=== PATIENT | female | born 1945 | race Caucasian/White ===

== ENCOUNTER 2020-07-06 06:14 | Outpatient (REF) | payer MEDICARE, SELFPAY ==
[2020-07-06 11:04] LABS: MANUAL DIFF FLAG NO
[2020-07-06 11:31] LABS: Basophils Absolute Auto 0.1 X10*3/uL (0.0-0.2); Basophils Percent Auto 0.8 % (0-2); Eosinophils Absolute Auto 0.2 X10*3/uL (0.0-0.4); Eosinophils Percent Auto 2.1 % (0-4); Hematocrit 36.6 % (37-47); Hemoglobin 11.5 g/dl (12.0-16.0); Imm Gran Abs Auto 0.03 X10*3/uL (0.00-0.03); Imm Gran Pct Auto 0.4 % (0.0-0.4); Lymphocytes Absolute Auto 1.2 X10*3/uL (1.2-4.9); Lymphocytes Percent Auto 16.9 % (20-40); Mean Corpuscular HGB Conc 31.4 g/dl (31.0-35.0); Mean Corpuscular Volume 89.1 fL (80-98); Mean Platelet Volume 9.6 fL (9.4-12.3); Monocytes Absolute Auto 0.8 X10*3/uL (0.1-1.2); Monocytes Percent Auto 11.1 % (2-11); Neutrophils Percent Auto 68.7 % (45-73); Platelet Count 341 X10*3/uL (160-400); Red Blood Count 4.11 X10*6/uL (4.20-5.50); Red Cell Distribution Width 14.2 % (11.0-16.0); White Blood Count 7.3 X10*3/uL (4.8-10.8)
[2020-07-06 11:48] LABS: Alanine Aminotransferase 14 U/L (0-31); Albumin Level 4.3 g/dL (3.5-5.0); Alkaline Phosphatase 71 U/L (39-117); Anion Gap 15 (12-20); Aspartate Amino Transferase 16 U/L (5-31); Bilirubin Total 0.7 mg/dL (0.0-1.0); Blood Urea Nitrogen 17 mg/dL (9-16); Carbon Dioxide 26 mmol/L (22-29); Chloride 105 mmol/L (96-108); Estimated Glomerular Filt Rate > 60; Glucose Random 103 mg/dL (60-115); Iron 39 mcg/dL (30-160); Percent Iron Saturation 11 % (15-50); Sodium 142 mmol/L (135-145); Total Iron Binding Capacity 349 mcg/dL (228-428); Total Protein 7.2 g/dL (6.5-8.0); Unsaturated Iron Binding 310 ug/dL
[2020-07-06 12:10] LABS: Folate 10.9 ng/mL (> or = 4.0); Vitamin B12 669 pg/mL (200-900)
[2020-07-06 12:13] LABS: Ferritin 17 ng/mL (10-250)
[2020-07-09 12:53] LABS: Methylmalonic Acid 132 nmol/L (87-318)
== END 2020-07-06 06:15 | disposition home or self-care (01) ==
LOC: HO.HMGCLDS 06:14
PROVIDERS: PCP Internal Medicine; Visit Provider Internal Medicine
DX: M15.9 Polyosteoarthritis, unspecified (principal); K22.70 Barrett's esophagus without dysplasia; K21.9 Gastro-esophageal reflux disease without esophagitis; E03.9 Hypothyroidism, unspecified; D50.9 Iron deficiency anemia, unspecified; E53.8 Deficiency of other specified B group vitamins
CPT/HCPCS: 36415; 80053; 82607; 82728; 82746; 83540; 83921; 84443; 85025

== ENCOUNTER 2020-11-09 10:00 | Outpatient (REF) | payer MEDICARE, SELFPAY ==
[2020-11-09 11:21] LABS: MANUAL DIFF FLAG NO
[2020-11-09 11:26] LABS: Basophils Absolute Auto 0.1 X10*3/uL (0.0-0.2); Basophils Percent Auto 0.8 % (0-2); Eosinophils Absolute Auto 0.2 X10*3/uL (0.0-0.4); Eosinophils Percent Auto 2.6 % (0-4); Hematocrit 38.5 % (37-47); Hemoglobin 12.1 g/dl (12.0-16.0); Imm Gran Abs Auto 0.05 X10*3/uL (0.00-0.03); Imm Gran Pct Auto 0.6 % (0.0-0.4); Lymphocytes Absolute Auto 1.6 X10*3/uL (1.2-4.9); Lymphocytes Percent Auto 18.6 % (20-40); Mean Corpuscular HGB Conc 31.4 g/dl (31.0-35.0); Mean Corpuscular Hemoglobin 27.4 pg (27.0-33.0); Mean Corpuscular Volume 87.3 fL (80-98); Mean Platelet Volume 9.6 fL (9.4-12.3); Monocytes Percent Auto 11.7 % (2-11); Neutrophils Absolute Auto 5.8 X10*3/uL (2.0-8.3); Neutrophils Percent Auto 65.7 % (45-73); Platelet Count 365 X10*3/uL (160-400); Red Blood Count 4.41 X10*6/uL (4.20-5.50); Red Cell Distribution Width 14.8 % (11.0-16.0); White Blood Count 8.8 X10*3/uL (4.8-10.8)
[2020-11-09 12:13] LABS: Ferritin 45 ng/mL (10-250); TSH reflex Free T4 2.66 uIU/mL (0.32-4.0)
[2020-11-09 12:14] LABS: Iron 68 mcg/dL (30-160); Percent Iron Saturation 19 % (15-50); Total Iron Binding Capacity 356 mcg/dL (228-428); Unsaturated Iron Binding 288 ug/dL
== END 2020-11-09 10:01 | disposition home or self-care (01) ==
LOC: HO.HMGCLDS 10:00
PROVIDERS: PCP Internal Medicine; Visit Provider Internal Medicine
DX: E03.9 Hypothyroidism, unspecified (principal); D50.9 Iron deficiency anemia, unspecified
CPT/HCPCS: 36415; 82728; 83540; 84443; 85025

== ENCOUNTER 2021-11-15 08:25 | Outpatient (REF) | payer MEDICARE, SELFPAY ==
[2021-11-15 11:28] LABS: MANUAL DIFF FLAG NO
[2021-11-15 11:37] LABS: Basophils Absolute Auto 0.1 X10*3/uL (0.0-0.2); Basophils Percent Auto 1.1 % (0-2); Eosinophils Absolute Auto 0.3 X10*3/uL (0.0-0.4); Eosinophils Percent Auto 6.2 % (0-4); Hematocrit 29.9 % (37.0-47.0); Hemoglobin 9.2 g/dl (12.0-16.0); Imm Gran Abs Auto 0.02 X10*3/uL (0.00-0.03); Imm Gran Pct Auto 0.4 % (0.0-0.4); Lymphocytes Absolute Auto 1.1 X10*3/uL (1.2-4.9); Lymphocytes Percent Auto 19.3 % (20-40); Mean Corpuscular HGB Conc 30.8 g/dl (31.0-35.0); Mean Corpuscular Hemoglobin 27.5 pg (27.0-33.0); Mean Corpuscular Volume 89.5 fL (80.0-98.0); Mean Platelet Volume 9.8 fL (9.4-12.3); Monocytes Absolute Auto 0.8 X10*3/uL (0.1-1.2); Monocytes Percent Auto 14.9 % (2-11); Neutrophils Absolute Auto 3.2 x10*3/uL (2.0-8.3); Neutrophils Percent Auto 58.1 % (45-73); Platelet Count 405 X10*3/uL (160-400); Red Blood Count 3.34 X10*6/uL (4.20-5.50); Red Cell Distribution Width 15.8 % (11.0-16.0); White Blood Count 5.5 X10*3/uL (4.8-10.8)
[2021-11-15 11:48] LABS: Alanine Aminotransferase 9 U/L (0-31); Albumin Level 3.7 g/dL (3.5-5.0); Alkaline Phosphatase 68 U/L (39-117); Anion Gap 10 (12-20); Aspartate Amino Transferase 11 U/L (5-31); Bilirubin Total 1.3 mg/dL (0.0-1.0); Blood Urea Nitrogen 8 mg/dL (9-16); Calcium 9.3 mg/dL (8.4-10.2); Carbon Dioxide 29 mmol/L (22-29); Chloride 103 mmol/L (96-108); Estimated Glomerular Filt Rate > 60; Glucose Random 112 mg/dL (60-115); Potassium 3.8 mmol/L (3.3-5.1); Sodium 138 mmol/L (135-145); Total Protein 6.7 g/dL (6.5-8.0)
== END 2021-11-15 08:26 | disposition home or self-care (01) ==
LOC: HO.HMGCLDS 08:25
PROVIDERS: PCP Internal Medicine; Visit Provider Internal Medicine
DX: I10 Essential (primary) hypertension (principal); M15.9 Polyosteoarthritis, unspecified; Z96.651 Presence of right artificial knee joint
CPT/HCPCS: 36415; 80053; 85025

== ENCOUNTER 2021-12-22 06:37 | Outpatient (REF) | payer MEDICARE, SELFPAY | END 2021-12-22 06:38 | disposition home or self-care (01) | LOC: HO.HMGCLDS 06:37 | PROVIDERS: Visit Provider Internal Medicine | DX: Z13.89 Encounter for screening for other disorder (principal) ==

== ENCOUNTER 2025-02-26 06:41 | Outpatient (REF) | payer MEDICARE, SELFPAY ==
--- OUTSIDE RECORDS SUMMARY | 2025-02-26 06:47 | XMS_ITS | Clinical Summary ---
Author Organization [facility] Address [address] [place] [address] Phone Care Team Providers Care Customer Relations Representative Name Role Phone Eloy Agustin MD Primary Care Provider [phone] Allergies Active Allergy Reactions Criticality Noted Date Comments Aspirin High 12/02/2019 Other reaction(s): Other (See Comments) Peptic ulcer bleeds Azithromycin 08/23/2017 Other reaction(s): GI Upset Celecoxib Diarrhea 08/23/2017 Codeine Headache 08/23/2017 Latex Rash Low 07/13/2021 Nsaids (Non-Steroidal Anti-Inflammatory Drug) 06/28/2021 Omeprazole Diarrhea 08/23/2017 Oxaprozin 08/23/2017 Other reaction(s): Other (See Comments) Stomach pain Tetracycline 08/23/2017 Other reaction(s): Other (See Comments) Medications acetaminophen (TYLENOL) 500 mg tablet Every 6 Hours Active albuterol sulfate (ProAir RespiClick) 90 mcg/actuation aerosol powdr breath activated Inhale into the lungs. Active ascorbic acid, vitamin C, 500 mg capsule Take by mouth. Active gabapentin (NEURONTIN) 300 mg capsule Take 1 Capsule by mouth 2 times daily. Active levothyroxine (SYNTHROID, LEVOTHROID) 125 mcg tablet Take 1 Tablet by mouth daily. Active LORazepam (ATIVAN) 1 mg tablet Take 1 Tablet by mouth every 6 hours as needed. Active pantoprazole (PROTONIX) 40 mg EC tablet Take 1 Tablet by mouth daily. Active sertraline (ZOLOFT) 50 mg tablet Take 1 Tablet by mouth daily. Active sucralfate (CARAFATE) 1 gram tablet Take 1 Tablet by mouth 4 times daily. Active cyanocobalamin (VITAMIN B-12) 100 mcg tablet Take 0.5 Tablets by mouth daily. Active senna-docusate (PERICOLACE) 8.6-50 mg per tablet Take 1 tablet by mouth. 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 10/23 Hand arthritis 10/23/2022 Gait instability 10/23/2022 Anxiety 10/20/2022 Elevated bilirubin 10/20/2022 Scoliosis of thoracolumbar spine 10/20/2022 GIB (gastrointestinal bleeding) 10/20/2022 GERD (gastroesophageal reflux disease) S/P total left hip arthroplasty 10/20/2022 S/P hysterectomy 10/20/2022 History of total knee replacement 10/20/2022 Encounters Date Type Department Care Team Description 01/23/2025 7:00 AM EDT Ancillary Procedure [facility] [address] [facility] [address] [place] [address] Cardiac murmur from Last 3 Months Immunizations Name Administration Dates Next Due Moderna SARS-CoV-2 COVID-19, mRNA, LNP-S, preservative free 10/14/2020,09/16/2020 Surgical History Surgery Date Site/Laterality Comments TOTAL KNEE ARTHROPLASTY 05/16/2022 Left PROCEDURE: HISTORICAL TOTAL KNEE REPLACE; COMMENT: @ [facility] TOTAL KNEE ARTHROPLASTY 10/24/2021 Right PROCEDURE: HISTORICAL TOTAL KNEE REPLACE; COMMENT: @ [facility] HYSTERECTOMY PROCEDURE: HISTORICAL HYSTERECTOMY HIP ARTHROPLASTY Left PROCEDURE: HISTORICAL HIP REPLACEMENT; COMMENT: @ [place] Social History Tobacco Use Types Packs/Day Years Used Date Smoking Tobacco: Never Smokeless Tobacco: Never Alcohol Use Standard Drinks/Week Comments Never 0 (1 standard drink = 0.6 oz pur e alcohol) Comments Unknown Sex and Gender Information Value Date Recorded Sex Assigned at Not on file Legal Sex Female 9:34 PM EST Gender Identity Not on file Sexual Orientation Not on file Obstetrics History Last Filed Vital Signs Vital Sign Reading Time Taken Comments Blood Pressure 130/80 01/23/2025 7:44 AM EDT Pulse 64 10/05/2023 9:24 AM EDT Temperature - - Respiratory Rate - - Oxygen Saturation - - Inhaled Oxygen Concentration - - Weight 75.3 kg (166 lb) 01/23/2025 7:44 AM EDT Height 157.5 cm (5' 2 ) 01/23/2025 7:44 AM EDT Body Mass Index 30.36 01/23/2025 7:44 AM EDT Plan of Treatment Upcoming Encounters Date Type Department Care Team (Late st Contact Info) Description 05/19/2025 1:20 PM EST Office Visit Gastroenterology - [address] [place] [address] Lisandra Case MD [address] [place] [id number] Health Maintenance Due Date Last Done Comments Falls Risk Assessment 06/03/2022 Lung Cancer Screening (Low Dose CT) 06/03/2022 Osteoporosis Screening (Bone Density Screening) 06/03/2022 Social Influencers of Health Screening 06/03/2022 Medicare Annual Wellness Visit 03/09/2023 03/09/2022 Depression Screening 07/02/2024 COVID-19 Vaccine ( season) 2024 05/12/2024, 03/17/2023, 03/24/2022, Additional history exists Influenza Vaccine (#1) 2025 , 02/24/2023, 02/23/2022, Additional history exists DTaP,Tdap,and Td Vaccines (4 - Td or Tdap) 04/09/2028 04/09/2018, 10/07/2015, 04/01/2006 Cholesterol Screening (Lipid Panel) 10/13/2029 10/13/2024, 03/09/2022 Zoster Vaccines Completed 08/23/2019, 10/2018, 04/14/2014 Hepatitis C Screening Completed 11/21/2019 Pneumococcal Vaccine: 50+ Years Completed 02/05/2020, 08/30/2016, 12/22/2014, Additional history exists RSV Immunization Adult Patients Completed 01/17/2024 HIB Vaccines Aged Out No longer eligi ble based on patient's age to complete this topic HPV Vaccines Aged Out No longer eligi ble based on patient's age to complete this topic Hepatitis A Vaccines Aged Out No long er eligible based on patient's age to complete this topic Hepatitis B Vaccines Aged Out No long er eligible based on patient's age to complete this topic IPV Vaccines Aged Out No longer eligi ble based on patient's age to complete this topic MMR Vaccines Aged Out No longer eligi ble based on patient's age to complete this topic Meningococcal ACWY Vaccine Aged Out N o longer eligible based on patient's age to complete this topic Meningococcal B Vaccine Aged Out No l onger eligible based on patient's age to complete this topic RSV Immunization Patients Under 20 months Aged Out No longer eligible based on patient's age to complete this topic Varicella Vaccines Aged Out No longer eligible based on patient's age to complete this topic Procedures Procedure Name Priority Date/Time Associated Diagnosis Comments TRANSTHORACIC ECHOCARDIOGRAM (TTE) COMPLETE Routine 01/23/2025 7:44 AM EDT Cardiac murmur LIPID PANEL Routine 03/09/2022 from Last 3 Months or Most Recently Relevant to Health Maintenance Results * (ABNORMAL) TRANSTHORACIC ECHOCARDIOGRAM (TTE) COMPLETE (01/23/2025 7:44 AM EDT) Left Atrium Minor Chana 6.5 cm CV PACS Left Atrium Major Chana 5.9 cm CV PACS LA Area Sys (A2C) 21 cm2 CV PACS LA Area Sys (A4C) 25 cm2 CV PACS LA Volume (BP) 69 mL CV PACS RA Area 12.4 cm2 CV PACS RA 2D Volume 20 mL CV PACS AV Mean Gradient 13 mmHg CV PACS Ao VTI 44.7 cm CV PACS AV Peak Robert 2.5 m/s CV PACS AV Peak Gradient 25 mmHg CV PACS AV Area Continuity Equation 1.8 cm2 CV PACS AV Area Peak Velocity 1.8 cm2 CV PACS Aortic Sinus Valsalva 3.5 cm CV PACS Ascending Aorta 3.3 cm CV PACS IVC Proximal 1.6 cm CV PACS IVC Proximal 0.3 cm CV PACS IVSD 1.1(A) 0.6 - 0.9 cm CV PACS LVIDD 5.6(A) 3.8 - 5.2 cm CV PACS LVIDS 3.7(A) 2.2 - 3.5 cm CV PACS LVOT Diameter 2.3 cm CV PACS LVOT Mean Robert 0.7 m/s CV PACS LVOT Mean Grad 2 mmHg CV PACS LVOT Mean Grad 2 mmHg CV PACS LVOT Peak VTI 19.2 cm CV PACS LVOT Peak Robert 1.1 m/s CV PACS LVOT Peak Gradient 4 mmHg CV PACS LVPWD 1.1(A) 0.6 - 0.9 cm CV PACS MV E' Tissue Velocity Lateral 4 cm/s CV PACS MV E' Tissue Velocity Septal 3 cm/s CV PACS LVOT Area 4.2 cm2 CV PACS LVOT Stroke Volume 80 mL CV PACS MR VTI 159.0 cm CV PACS MR PISA Max Velocity 5.4 m/s CV PACS MR Peak Gradient 115 mmHg CV PACS E Wave Deceleration Time 268(A) 119 - 242 ms CV PACS MV Peak A Robert 1.37 m/s CV PACS MV Peak E Robert 0.95 m/s CV PACS PV Acceleration Time 113 ms CV PACS PV Acceleration Time 113 ms CV PACS RV Diastolic Basal Dimension 2.5 2.5 - 4.1 cm CV PACS RV S' 15 cm/s CV PACS TAPSE 22 mm CV PACS TR Peak Velocity 3.05 m/s CV PACS TR Peak Gradient 37 mmHg CV PACS E/E' Ratio Septal 32 CV PACS E/E' Ratio Averaged 28 CV PACS Relative Wall Thickness ratio 0.39 CV PACS LVOT:AV VTI Index 0.43 CV PACS FS 34 % CV PACS LV Mass 2D 249 g CV PACS LVOT flow 291 mL/s CV PACS AV Velocity Ratio 0.44 CV PACS E/A Ratio 0.7 CV PACS E/E' Ratio Lateral 24 CV PACS BSA 1.82 m2 CV PACS LA Volume Index (BP) 39 mL/m2 CV PACS LVIDD Index 3.16 cm/m2 CV PACS LVIDS Index 2.09 cm/m2 CV PACS LV Mass Index 2D 141(A) 44 - 88 g/m2 CV PACS LVOT Stroke Index 45 mL/m2 CV PACS RA 2D Volume Index 11(A) 15 - 27 mL/m2 CV PACS MORRIS Index (VTI) 1.01 cm2/m2 CV PACS MORRIS Index (Pk Robert) 1.02 cm2/m2 CV PACS Ascending Aorta Index 1.86 cm/m2 CV PACS Anatomical Region Laterality Modality Ultrasound Narrative 01/24/2025 7:39 PM EDT Left ventricle cavity is mildly dilated. Left ventricular systolic function is in the normal range with an ejection fraction of 60-65%. No regional LV wall motion abnormalities noted. Left ventricle mild concentric hypertrophy. There is Grade II (moderate) diastolic dysfunction. Elevated left atrial filling pressure Right ventricle cavity is normal. Right ventricular systolic function is normal. Aortic valve demonstrates mild stenosis. 21 mmHg peak 11 mmHg mean gradient Left atrial enlargement mild mitral insufficiency. Compared to previous study from 2019 there has been no significant change in the gradient across the aortic valve. The severity of the tricuspid insufficiency is unchanged. Diastolic dysfunction is unchanged Left Ventricle Left ventricle cavity is mildly dilated. There is mild concentric hypertrophy. Systolic function is normal with an ejection fraction of 60-65%. There are no regional LV wall motion abnormalities. There is Grade II (moderate) diastolic dysfunction. Right Ventricle Right ventricle cavity appears normal. Systolic function is normal. Left Atrium Left atrium cavity is mildly dilated. Right Atrium Right atrium cavity is small. IVC/SVC Inferior vena cava structure is normal. RA pressures is estimated to be 3 mmHg (IVC diameter <21 mm and decreases >50% during inspiration). Mitral Valve The leaflets are mildly thickened. 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 There is moderate annular calcification. There is mild regurgitation. There is no evidence of mitral valve stenosis. Tricuspid Valve Tricuspid valve structure is normal. There is mild regurgitation. There is no significant tricuspid valve stenosis. Aortic Valve Number of aortic valve cusps cannot be determined. The leaflets are mildly thickened and exhibit mildly reduced excursion. The leaflets are calcified. There is no regurgitation. There is mild stenosis. Pulmonic Valve The pulmonic valve was not well visualized. No significant pulmonic valve regurgitation. No significant pulmonary valve stenosis noted. Ascending Aorta The aorta appears normal in size. Pericardium Pericardium appears normal. There is no pericardial effusion. Study Details Overall the study quality was adequate. Eloy Agustin MD CV ECHO PROCEDURES Final Result * Lipid panel (03/09/2022) LDL/HDL Ratio 0 Comment:No Interpretation, A bstracted Triglycerides 0 mg/dL Comment:No Interpretation, A bstracted Cholesterol 0 mg/dL Comment:No Interpretation, A bstracted HDL 0 mg/dL Comment:No Interpretation, A bstracted LDL Cholesterol 0 mg/dL Comment:No Interpretation, A bstracted Blood Venous blood specimen / Unknown Historical Provider LAB BLOOD ORDERABLES Emely l Result from Last 3 Months or Most Recently Relevant to Health Maintenance Insurance MEDICARE [facility] Care Teams Customer Relations Representative Relationship Specialty Start Date End Date Eloy Agustin MD [address] [place] [address] PCP - General 10/23/22
--- OUTSIDE RECORDS SUMMARY | 2025-02-26 06:47 | XMS_ITS | Encounter Summary ---
Author Organization [facility] Address [address] [place] [address] Phone Care Team Providers Care Fire Observer Name Role Phone Eloy Agustin MD Unavailable [phone] Eloy Agustin MD Primary Care Provider [phone] InstrumTommy MD Unavailable Art Parra MD Unavailable [phone] 1 María Day PT Unavailable [phone] Lyly Saavedra OT Unavailable Encounter Details Date Type Department Care Team (Late st Contact Info) Description 02/08/2022 Procedure Pass [facility], Ct Scan - [address] [address] Social History Tobacco Use Types Packs/Day Years Used Date Smoking Tobacco: Former Cigarettes 1.5 32 0 08/30/1986 - 08/30/2018 Smokeless Tobacco: Never Alcohol Use Standard Drinks/Week Comments Not Currently 0 (1 standard drink = 0.6 oz pur e alcohol) none, quit 2019 Comments No Sex and Gender Information Value Date Recorded Sex Assigned at Female 06/11/2021 10:30 AM EST Legal Sex Female 10:05 PM EDT Gender Identity Not on file Sexual Orientation Not on file Occupation Industry 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 Start Date 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, 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 Not on file Not on file Not on file documented as of this encounter Plan of Treatment Upcoming Encounters Date Type Department Care Team (Late st Contact Info) Description 04/20/2025 9:30 AM EDT Office Visit [facility] Internal Medicine [address] [place] [address] Eloy Agustin MD [address] [place] [address] [email or web address] documented as of this encounter Visit Diagnoses Not on filedocumented in this encounter Additional Health Concerns Assessment Noted Time PHQ-2 Depression Total Score: 1 08/09/19 22 10:09 AM EST documented as of this encounter Care Teams Fire Observer Relationship Specialty Start Date End Date Eloy Agustin MD [address] [place] [address] PCP - General Internal Medicine 08/22/17 Eloy Agustin MD [address] [place], [place] Insurance Assigned Provider 10/06/23 InstrumTommy MD [address] [place] [id number] Orthopedic Surgery 11/20/19 Art Parra MD [address] [place] [address] Gastroenterology 11/25/19 María Day, PT [address] [place] [address] [email or web address] Physical Therapist Physical Therapy 10/24/21 Lyly Saavedra, OT [address] [place] [address] [email or web address] Transitions Measurement Advisor 05/17/22 2 documented as of this encounter Additional Source Comments The information contained in this document represents components of the legal health record. It is not the complete legal health record.[facility]
--- OUTSIDE RECORDS SUMMARY | 2025-02-26 06:47 | XMS_ITS | Encounter Summary ---
Author Organization [facility] Address [address] [place] [address] Phone Care Team Providers Care Forest Fire Specialist Supervisor Name Role Phone Eloy Agustin MD Unavailable [phone] Eloy Agustin MD Primary Care Provider [phone] InstrumTommy MD Unavailable Art Parra MD Unavailable [phone] 1 María Day PT Unavailable [phone] Reason for Visit * Reason Onset Date Comments Test Results 02/24/2025 Encounter Details Date Type Department Care Team (Late st Contact Info) Description 02/24/2025 Telephone Managed Methods [facility] Internal Medicine [address] [place] [address] Eloy Agustin MD [address] [place] [address] [email or web address] Test Results Social History Tobacco Use Types Packs/Day Years Used Date Smoking Tobacco: Former Cigarettes 1.5 34 0 08/30/1984 - 08/30/2018 Smokeless Tobacco: Never Comments:started smoking at age 39 Alcohol Use Standard Drinks/Week Comments Never 0 (1 standard drink = 0.6 oz pur e alcohol) none, quit 2019 Education Answer Date Recorded Are you interested in more education? Not on cocnha e 10/27/2022 Are you concerned about learning? Not on file 10/27/2022 No 10/27/2022 No 10/27/2022 Digital Access Answer Date Recorded No 11/27/2022 No 11/27/2022 Reliable internet access at home? Not on file 11/27/2022 Device with a working camera? Not on file Intimate Partner Violence Answer Date R ecorded Denied Basic Needs Not on file 11/27/2024 In the past 12 months have y ou been in a relationship with a person who hurts, threatens, or tries to control you? No 11/27/2024 Worried food would run out Not on file 11/27 In the past 12 months have y ou been in a relationship with a person who hurts, threatens, or tries to control you? 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 Compared to 2019 echo no significant change. * Ankita Holland - 02/24/2025 8:45 AM EDT Received call from patient requesting lab orders be faxed to [facility] in [place] on [address]. Faxed to [phone]. While on the call patient request a return call for results of Echo completed 01/23/2025 at [facility]. documented in this encounter Plan of Treatment Upcoming Encounters Date Type Department Care Team (Arley burton Contact Info) Description 04/20/2025 9:30 AM EDT Office Visit [facility] Internal Medicine [address] [place] [address] Eloy Agustin MD [address] [place] [address] documented as of this encounter Visit Diagnoses Not on filedocumented in this encounter Additional Health Concerns Assessment Noted Time PHQ-2 Depression Total Score: 0 11/28/19 8:53 AM EDT documented as of this encounter Care Teams Forest Fire Specialist Supervisor Relationship Specialty Start Date End Date Eloy Agustin MD [address] [place] [address] PCP - General Internal Medicine 08/22/17 Eloy Agustin MD [address] [place] [address] Insurance Assigned Provider 10/06/23 Instrum, Tommy Donald MD [address] [place] [address] Orthopedic Surgery 11/20/19 Art Parra MD [address] [place] [address] Gastroenterology 11/25/19 María Day, PT [address] [place] [address] [email or web address] Physical Therapist Physical Therapy 10/24/21 documented as of this encounter Additional Source Comments The information contained in this document represents components of the legal health record. It is not the complete legal health record.[facility]
--- OUTSIDE RECORDS SUMMARY | 2025-02-26 06:47 | XMS_ITS | Encounter Summary ---
Author Organization [facility] Address [address] [place] [address] Phone Care Team Providers Care Heating Unit Installer Name Role Phone Eloy Agustin MD Unavailable [phone] Eloy Agustin MD Primary Care Provider [phone] InstrumTommy MD Unavailable Art Parra MD Unavailable [phone] 1 María Day PT Unavailable Keivn Thomason OT Unavailable [phone] Lyly Saavedra OT Unavailable [phone] Encounter Details Date Type Department Care Team (Late st Contact Info) Description 10/24/2021 Procedure Pass [place] Admitting Dept - Virtual Department [address] [place] [phone] Social History Tobacco Use Types Packs/Day Years 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 Wish to be (Past 1 Month) No 10/24/2021 4:00 PM EDT [place], [place] 2. Non-Specific Active Suicidal Thoughts (Past 1 Month) No 10/24/2021 4:00 PM EDT Daya Fair RN 6. Suicidal Behavior (Lifetime) No 10/24/2021 4:00 PM EDT Daya Fair RN documented as of this encounter Plan of Treatment Upcoming Encounters Date Type Department Care Team (Late st Contact Info) Description 04/20/2025 9:30 AM EDT Office Visit [facility] Internal Medicine [address] [place] [address] Eloy Agustin MD [address] [place], [place] [email or web address] documented as of this encounter Visit Diagnoses Not on filedocumented in this encounter Additional Health Concerns Assessment Noted Time PHQ-2 Depression Total Score: 1 08/09/19 22 10:09 AM EST documented as of this encounter Care Teams Heating Unit Installer Relationship Specialty Start Date End Date Eloy Agustin MD [address] [place], [place] [email or web address] PCP - General Internal Medicine 08/22/17 Eloy Agustin MD [address] [place] [address] Insurance Assigned Provider 10/06/23 Tommy Carrion MD [address] [place] [address] [address] [place] [address] Orthopedic Surgery 11/20/19 Art Parra MD [address] [place] [address] Gastroenterology 11/25/19 María Day, PT [address] [place] [address] [email or web address] Physical Therapist Physical Therapy 10/24/21 Kevin Thomason, OT [address] [place] [address] [email or web address] Wharf [email or web address] Of Nursing Therapy 10/25/21 Lyly Saavedra, OT [address] [place] [address] [email or web address] Transitions Wharf Worker 05/17/22 2 documented as of this encounter Additional Source Comments The information contained in this document represents components of the legal health record. It is not the complete legal health record.[facility]
--- OUTSIDE RECORDS SUMMARY | 2025-02-26 06:47 | XMS_ITS | Encounter Summary ---
Author Organization [facility] Address [address] [place] [address] Phone Care Team Providers Care Yarn Carrier Name Role Phone Eloy Agustin MD Unavailable [phone] Eloy Agustin MD Primary Care Provider [phone] InstrumTommy MD Unavailable Art Parra MD Unavailable [phone] 1 María Day PT Unavailable [phone] Lyly Saavedra OT Unavailable [phone] Encounter Details Date Type Department Care Team (Late st Contact Info) Description 05/16/2022 Procedure Pass OR Admitting Dept - Virtual Department [address] [place] [id number] Social History Tobacco Use Types Packs/Day Years 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 Wish to be (Past 1 Month) No 022 6:00 PM Daily Ghosh RN 2. Non-Specific Active Suici lizy Thoughts (Past 1 Month) No 05/16/2022 6:00 PM Daily Ghosh RN 3. Active Suicidal Ideation with any Methods (Not Plan) Without Intent to Act (Past 1 Month) No 05/16/2022 6:00 PM Daily Ghosh, [place] 4. Active Suicidal Ideation with Some Intent to Act, Without Specific Plan (Past 1 Month) No 05/16/2022 6:00 PM Daily Ghosh RN 5. Active Suicidal Ideation with Specific Plan and Intent (Past 1 Month) No 05/16/2022 6:00 PM Daily Ghosh RN 6. Suicidal Behavior (Lifetime) No 6:00 PM Daily Ghosh RN documented as of this encounter Plan of Treatment Upcoming Encounters Date Type Department Care Team (Late st Contact Info) Description 04/20/2025 9:30 AM EDT Office Visit [facility] Internal Medicine [address] [place] [address] Eloy Agustin MD [address] [place] [address] [email or web address] documented as of this encounter Visit Diagnoses Not on filedocumented in this encounter Additional Health Concerns Assessment Noted Time PHQ-2 Depression Total Score: 0 03/09/20 22 10:02 AM EDT documented as of this encounter Care Teams Yarn Carrier Relationship Specialty Start Date End Date Eloy Agustin MD [address] [place] [address] PCP - General Internal Medicine 08/22/17 Eloy Agustin MD [address] [place] [address] Insurance Assigned Provider 10/06/23 InstrTommy santiago MD [address] [place] [id number] Orthopedic Surgery 11/20/19 Art Parra MD [address] [place] [address] Gastroenterology 11/25/19 María Day, PT [address] [place] [address] Physical Therapist Physical Therapy 10/24/21 Lyly Saavedra, OT [address] [place] [address] [email or web address] Transitions [employer] Supply Load Builder 05/17/22 2 documented as of this encounter Additional Source Comments The information contained in this document represents components of the legal health record. It is not the complete legal health record.[facility]
--- OUTSIDE RECORDS SUMMARY | 2025-02-26 06:47 | XMS_ITS | Encounter Summary ---
Author Organization [facility] Address [address] [place] [address] Phone Care Team Providers Care Associate Financial Representative Name Role Phone Eloy Agustin MD Unavailable [phone] Eloy Agustin MD Primary Care Provider [phone] InstrumTommy MD Unavailable [phone] Art Parra MD Unavailable [phone] 1 María Day PT Unavailable [phone] Encounter Details Date Type Department Care Team (Late st Contact Info) Description 01/26/2025 Orders Only [facility] Internal Medicine [address] [place] [address] Provider, MD Adelaida [address] [place] [address] Social History Tobacco Use Types Packs/Day Years Used Date Smoking Tobacco: Former Cigarettes 1.5 34 0 08/30/1984 - 08/30/2018 Smokeless Tobacco: Never Comments:started smoking at age 39 Alcohol Use Standard Drinks/Week Comments Never 0 (1 standard drink = 0.6 oz pur e alcohol) none, quit 2019 Education Answer Date Recorded Are you interested in more education? Not on concha e 10/27/2022 Are you concerned about learning? 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 Not on file Not on file Not on file documented as of this encounter Plan of Treatment Upcoming Encounters Date Type Department Care Team (Late st Contact Info) Description 04/20/2025 9:30 AM EDT Office Visit [facility] Internal Medicine [address] [place] [address] Eloy Agustin MD [address] [place] [address] [email or web address] documented as of this encounter Procedures Procedure Name Priority Date/Time Associated Diagnosis Comments OUTSIDE ECHO Routine 01/23/2025 2:09 PM EDT documented in this encounter Results * Outside Echo Report Only (01/23/2025 2:09 PM EDT) us Historical Provider MD CASON ECHO ORDERABLES Final Result documented in this encounter Visit Diagnoses Not on filedocumented in this encounter Additional Health Concerns Assessment Noted Time PHQ-2 Depression Total Score: 0 11/28/19 8:53 AM EDT documented as of this encounter Care Teams Associate Financial Representative Relationship Specialty Start Date End Date Eloy Agustin MD [address] [place] [address] PCP - General Internal Medicine 08/22/17 Eloy Agustin MD [address] [place] [address] Insurance Assigned Provider 10/06/23 Instrum, Tommy Donald MD [address] [place] [address] Orthopedic Surgery 11/20/19 Art Parra MD [address] [place] [phone] Gastroenterology 11/25/19 María Day, PT [address] [place] [address] [email or web address] Physical Therapist Physical Therapy 10/24/21 documented as of this encounter Additional Source Comments The information contained in this document represents components of the legal health record. It is not the complete legal health record.[facility]
--- OUTSIDE RECORDS SUMMARY | 2025-02-26 06:47 | XMS_ITS | Clinical Summary ---
Author Organization [facility] Address [address] [place] [address] Phone Care Team Providers Care Figure Skater Name Role Phone Eloy Agustin MD Unavailable [phone] Eloy Agustin MD Primary Care Provider Instrum, Tommy Donald MD Unavailable [phone] Art Parra MD Unavailable [phone] María Day PT Unavailable [phone] Allergies Active Allergy Reactions Criticality Noted Date Comments Aspirin Other (See Comments) High 12/02/2019 Peptic ulcer bleeds Azithromycin GI Upset 08/23/2017 Celecoxib Diarrhea 08/23/2017 Codeine Headaches 08/23/2017 Latex Rash Low 07/13/2021 Nsaids (Non-Steroidal Anti-Inflammatory Drug) 06/28/2021 Omeprazole Diarrhea 08/23/2017 Oxaprozin Other (See Comments) 08/23/2017 Stomach pain Tetracycline Other (See Comments) 08/23/2017 Medications ascorbic acid, vitamin C, (VITAMIN C) 500 MG tablet Take 1 tablet (500 mg total) by mouth 2 (two) times a day. 10/27/19 Active Additional Information Patient taking differently:500 mg Oral2 times weekly, Reported on 11/27/2024 cyanocobalamin, vitamin B-12, 100 MCG tabletIndications: B12 deficiency Take 1 tablet (100 mcg total) by mouth daily. 100 tablet 1 03/10/20 22 Active Additional Information Patient taking differently:100 mcg OralEvery 30 days, Reported on 11/27/2024 lidocaine HCL 4 % PtMd Apply 1 patch topically daily as needed. Active gabapentin (NEURONTIN) 300 MG capsuleIndications :S/P total knee replacement using cement, right TAKE 1 CAPSULE BY MOUTH THREE TIMES A DAY 90 capsule 11 05/09/20 24 Active albuterol 90 mcg/actuation inhalerIndications :Bronchospasm INHALE 2 PUFFS BY MOUTH EVERY 6 HOURS NEEDED FOR WHEEZING 8 g 5 05/16/20 24 Active sertraline (ZOLOFT) 50 MG tabletIndications: Anxiety disorder TAKE 1 TABLET BY MOUTH NIGHTLY AT BEDTIME 90 tablet 3 08/19/19 25 Active acetaminophen (TYLENOL) 650 MG CR tablet Take 1,300 mg by mouth 2 (two) times a day. And 1 tablet in the afternoon Active pantoprazole (PROTONIX) 20 MG tabletIndications: Gastroesophageal reflux disease, unspecified whether esophagitis present Take 1 tablet (20 mg total) by mouth daily. 90 tablet 1 10/14/19 25 Active Additional Information Patient taking differently:20 mg OralAs needed, Reported on 11/27/2024 SYNTHROID 125 mcg tabletIndications: Acquired hypothyroidism Take 1 tablet (125 mcg total) by mouth as directed. 6 days/week 78 tablet 10/31/19 25 Active LORazepam (ATIVAN) 1 MG tabletIndications: Anxiety Take 1 tablet (1 mg total) by mouth every 8 (eight) hours as needed for anxiety. 90 tablet 4 11/28/19 25 Active folic acid (FOLVITE) 1 MG tabletIndications: Folic acid deficiency Take 1 tablet (1 mg total) by mouth daily. 100 tablet 1 12/01/19 25 Active Active Problems Problem Noted Date Diagnosed Date Chronic obstructive pulmonar y disease, unspecified COPD type 06/01/2023 S/P total knee replacement using cement, left Encounter for preoperative s creening laboratory testing for COVID-19 virus 10/25/2021 S/P total knee replacement using cement, right 0 10/24/2021 Primary osteoarthritis of left knee 07/13/2021 Primary osteoarthritis of right hip 07/13/2021 Pain due to left hip joint prosthesis 07/13/2021 Gait instability 07/13/2021 Other idiopathic scoliosis, thoracolumbar region 07/13/2021 Pseudogout 06/13/2021 Assessment & Plan (06/13/2021 4:47 PM EST): - left knee aspirate pseudogout - received colchicine, ortho recommends treat with prednisone - pain control with acetaminophen, tramadol, ice - also left sided potts's cyst - right knee pain is worse today, xray no fracture, may be pseudogout as well - septic arthritis seems unlikely, cont serial exam and will review with ortho - trend wbc, watch for fever (stop scheduled acetaminophen) Anemia 11/29/2018 Serum total bilirubin elevated 11/29/2018 Gastric ulcer 07/02/2018 Overview (06/12/2021): multiple transfusion after treatment with aspirin Acquired hypothyroidism 12/13/2017 Anxiety disorder 12/13/2017 Assessment & Plan (06/13/2021 4:45 PM EST): - cont current lorazepam Colon polyp 12/13/2017 Fatigue 12/13/2017 Hyperlipidemia 12/13/2017 Generalized osteoarthritis 12/13/2017 Seasonal allergic rhinitis due to pollen 018 Smoker 12/13/2017 History of gastric ulcer 12/13/2017 Assessment & Plan (06/13/2021 4:47 PM EST): Avoiding nsaids and aspirin - cont ppi and sucralfate 1 g Primary osteoarthritis of right knee Disorder of thyroid Resolved Problems Problem Noted Date Diagnosed Date Resolved Date Fever, unknown origin 06/12/20212020 Assessment & Plan (06/13/2021 4:50 PM EST): - could be due to pseudogout. - follow up blood and joint cultures - UA arias snot suggest UTI, covid negative x2, CXR does not show infiltrate - cont watchful waiting off antibiotics - left leg u/s no DVT, would check right as well Encounters Date Type Department Care Team Description 02/24/2025 Telephone [facility] [place] [facility] [address] [place] [address] Eloy Agustin MD Test Results 01/26/[address] [facility] [address] [place] [address] Adelaida Broussard MD 12/10/[address] [facility] [address] [place] [address] Eloy Agustin MD 12/01/[address] [facility] [address] [place] [address] Eloy Agustin MD Pre Op 11/30/[address] [facility] [address] [place] [address] Eloy Agustin MD Results 11/27/2024 11:15 AM EDT - 11/27/2024 11:59 PM EDT Hospital Encounter [facility] [address] [place] [address] Eloy Agustin MD Discharge Disposition: Home or Self Care 11/27/2024 9:30 AM EDT Office Visit [facility] [address] [place] [address] Eloy Agustin MD Routine general medical examination at a health care facility (Primary Dx); Acquired hypothyroidism; Vitamin D deficiency, unspecified; Gastroesophageal reflux disease, unspecified whether esophagitis present; Cardiac murmur, unspecified; Impaired fasting glucose; Primary osteoarthritis involving multiple joints; Anxiety disorder, unspecified type; Chronic obstructive pulmonary disease, unspecified COPD type; Anemia, unspecified type; Other idiopathic scoliosis, thoracolumbar region; Anxiety from Last 3 Months Immunizations Immunization Administration Dates Next Due COVID-19 (Pre-04/23) Moderna Vaccine, mRNA, PF 10/14/2020,09/16/2020 INFLUENZA, SPLIT VIRUS, TRIV ALENT W/ PRESERVATIVE IM 08/30/2018 Influenza High-Dose Quadriva lent Preservative Free IM 02/23/2022,03/14/2021,02/19/2020 Influenza High-Dose Trivalen t Preservative Free IM 02/13/2024,02/19/2020,04/03/2018,03/10,02/18/2016,03/28/2015,04/24/2013 Influenza Quadrivalent Adjuv anted Preservative Free IM 02/24/2023 Influenza, Unspecified Formulation 02/19/2019 PPD Test 11/01/2018 Pneumococcal conjugate PCV13 02/05/2020,12/23/19 15 Pneumococcal polysaccharide PPSV23 08/30/2016, RSV Vaccine (bivalent) 01/17/2024 Td (adult) 5 Lf Tetanus Toxo id, PF, Adsorbed 04/09/2018,04/01/2006 Tdap 10/07/2015 Zoster live 04/14/2014 Zoster recombinant 08/23/2019,05/06/2019 Family History Medical History Relation Comments Prostate cancer Father Colon cancer Mother Alcohol abuse Sister Colon cancer Son 2 Relation Status Comments Brother Daughter Alive Father Mother Sister Alive Son 1 Alive Son 2 Alive Social History Tobacco Use Types Packs/Day Years Used Date Smoking Tobacco: Former Cigarettes 1.5 34 0 08/30/1984 - 08/30/2018 Smokeless Tobacco: Never Tobacco Cessation:Counseling Given: Not Answered Comments:started smoking at age 39 Alcohol Use Standard Drinks/Week Comments Never 0 (1 standard drink = 0.6 oz pur e alcohol) none, quit 2018 Education Answer Date Recorded Are you interested 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, 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 Not on file Not on file Not on file Last Filed Vital Signs Vital Sign Reading Time Taken Comments Blood Pressure 136/74 11/27/2024 11:04 AM EDT Pulse 72 11/27/2024 9:20 AM EDT Temperature 37.3 C (99.2 F) 11/27/2024 9:20 AM EDT Respiratory Rate 16 11/27/2024 9:20 AM EDT Oxygen Saturation 100% 11/27/2024 9:20 AM EDT Inhaled Oxygen Concentration - - Weight 74.4 kg (164 lb) 11/27/2024 9:20 AM EDT Height 156.7 cm (5' 1.69 ) 11/27/2024 9:20 AM ED T Body Mass Index 30.3 11/27/2024 9:20 AM EDT Plan of Treatment Upcoming Encounters Date Type Department Care Team (Late st Contact Info) Description 04/20/2025 9:30 AM EDT Office Visit [facility] [place] [facility] [address] [place] [address] Eloy Agustin MD [address] [place] [address] [email or web address] Health Maintenance Due Date Last Done Comments HEPATITIS A VACCINES (1 of 2 - Risk 2-dose series) 12/17/1966 LUNG CANCER SCREENING (LDCT Only) 12/17/1997 COVID-19 VACCINE ( season) 2024 05/12/2024, 03/17/2023, 03/24/2022, Additional history exists INFLUENZA VACCINE (#1) 2025 , 02/24/2023, 02/24/2023, Additional history exists DEPRESSION SCREENING 11/27/2025 11/27/2024 TSH LEVEL 11/27/2025 11/27/2024, 09/30, 06/01/2023, Additional history exists Adult Td,Tdap Booster 04/09/2028 04/09/2018 , 10/07/2015, 04/01/2006 LIPID PANEL 10/13/2029 10/13/2024, 04/01, 04/10/2023, Additional history exists OSTEOPOROSIS SCREENING INITIAL (ONE-TIME) Completed 12/07/2011 ZOSTER VACCINES Completed 08/23/2019, 10/2018, 04/14/2014 HEPATITIS C SCREENING Completed 11/21/2019, 020 PNEUMOCOCCAL VACCINES (50+ years) Completed 02/05/2020, 08/30/2016, 12/22/2014, Additional history exists RSV VACCINE Completed 01/17/2024 HIB VACCINES Aged Out No longer eligi ble based on patient's age to complete this topic MENINGOCOCCAL VACCINES (ACWY) Aged Out No longer eligible based on patient's age to complete this topic MENINGOCOCCAL VACCINES (B) Aged Out N o longer eligible based on patient's age to complete this topic Medical Devices Implanted Type Area Collect On Delivery Clerk Device Identifier Shelf Expiration Date Model / Serial / Lot Prosthetic Joint Prosthetic Joint Left: Hip Knee Implant Sz 7 Component Femoral Persona Ps Sterling Cemented Std Rt - [id number] Implanted:Qty: 1 on 10/24/2021 by Chito Rooney MD at [facility] Right: Knee SUSAN / DIV OF [employer] 10/24/2030 [id number] / / [id number] Knee Implant 5deg Component Tibial Persona Titanium Stemmed Cemented Rt Size E - [id number] Implanted:Qty: 1 on 10/24/2021 by Chito Rooney MD at [facility] Right: Knee SUSAN / DIV OF [employer] 05/23/2031 [id number] / / [id number] Knee Cemented 35x9.0mm Patella All Poly Persona Vivacit E Highly Crossed Linked 06 Nc - [id number] Implanted:Qty: 1 on 10/24/2021 by Chito Rooney MD at [facility] Right: Knee SUSAN / DIV OF [employer] 07/10/2026 [id number] / / [id number] Bone Cement Antibiotic Refobacin - [id number] Implanted:Qty: 2 on 10/24/2021 by Chito Rooney MD at [facility] Right: Knee SUSAN / DIV OF [employer] 11/30/2023 [id number] / / [id number] Persona Vivacit-E Highly Crosslinked Polyethylene Articular Surface Fixed Bearing Ps Right 11mm Implanted:Qty: 1 on 10/24/2021 by Chito Rooney MD at [facility] Right: Knee SUSAN 09/17/2025 [id number] / / [id number] Description:Persona vivacit- e highly crosslinked polyethylene articular surface fixed bearing PS right 11mm Knee Implant 5deg Component Tibial Persona Titanium Stemmed Cemented Lt Size D - [id number] Implanted:Qty: 1 on 05/16/2022 by Chito Rooney MD at [facility] Left: Knee SUSAN / DIV OF [employer] 01/03/2032 [id number] / / [id number] Knee Cemented 35x9.0mm Patella All Poly Persona Vivacit E Highly Crossed Linked 06 Nc - [id number] Implanted:Qty: 1 on 05/16/2022 by Chito Rooney MD at [facility] Left: Knee [facility]USAN / [facility] 04/03/2027 [id number] / / [id number] Knee Implant 12mm Component Articular Surface Persona Vivacite E Contrained Posterior Stabilized Lt Fem 6 9 Tib Cd - [id number] Implanted:Qty: 1 on 05/16/2022 by Chito Rooney MD at [facility] Left: Knee SUSAN / DIV OF [employer] 07/14/2025 [id number] / / [id number] Description:Persona vivacit- e highly crosslinked polyethylene articular surface fixed bearing CPS left 12mm height Bone Cement Antibiotic Refobacin - [id number] Implanted:Qty: 1 on 05/16/2022 by Chito Rooney MD at [facility] Left: Knee SUSAN / DIV OF [employer] 05/31/2024 [id number] / / [id number] Bone Cement Antibiotic Refobacin - [id number] Implanted:Qty: 1 on 05/16/2022 by Chito Rooney MD at [facility] Left: Knee SUSAN / DIV OF [employer] 05/01/2024 [id number] / / [id number] Knee Implant Sz 6 Component Femoral Persona Ps Sterling Cemented Std Lt - [id number] Implanted:Qty: 1 on 05/16/2022 by Chito Rooney MD at [facility] Left: Knee SUSAN / DIV OF [employer] 09/27/2030 [id number] / / [id number] Procedures Procedure Name Priority Date/Time Associated Diagnosis Comments OUTSIDE ECHO Routine 01/23/2025 2:09 PM EDT VITAMIN B12 Routine 11/27/2024 11:15 AM EDT Anemia, unspecified type FERRITIN Routine 11/27/2024 11:15 AM EDT Anemia, unspecified type IRON AND IRON BINDING CAPACITY Routine 11/27/2024 11:15 AM EDT Anemia, unspecified type FOLATE Routine 11/27/2024 11:15 AM EDT Anemia, unspecified type CBC AND DIFFERENTIAL Routine 11/27/2024 11:15 AM EDT Anemia, unspecified type TSH WITH REFLEX Routine 11/27/2024 11:15 AM EDT Acquired hypothyroidism 25-OH VITAMIN D Routine 11/27/2024 11:15 AM EDT Vitamin D deficiency, unspecified LIPID PANEL Routine 10/13/2024 11:30 AM EDT Impaired fasting glucose Pure hypercholesterolemia HEPATITIS C ANTIBODY, QUALITATIVE Routine 11/21/2019 9:11 AM EDT Need for hepatitis C screening test OUTSIDE BONE DENSITY SCREENING Routine 12/07/2011 from Last 3 Months or Most Recently Relevant to Health Maintenance Results * Outside Echo Report Only (01/23/2025 2:09 PM EDT) us Historical Provider CV ECHO ORDERABLES Final Result * TSH with reflex (11/27/2024 11:15 AM EDT) TSH 1.35 0.27 - 4.20 uIU/mL [facility] Blood 11/27/2024 11:1 5 AM EDT 11/27/2024 11:20 AM EDT us Eloy Agustin MD LAB BLOOD ORDERABLES Final Re sult Performing Organization Address [facility]/ZIP Co de Phone Number [address] [address] * Iron and iron binding capacity (11/27/2024 11:15 AM EDT) IRON 62 30 - 160 ug/dL [facility] IRON BINDING CAPACITY 341 228 - 428 ug/dL [facility] TRANSFERRIN SATURAT. 18 15 - 50 % [facility] Blood 11/27/2024 11:1 5 AM EDT 11/27/2024 11:20 AM EDT Eloy Agustin MD LAB BLOOD ORDERABLES Final Re sult Performing Organization Address [facility]/ZIP Co de Phone Number [address] [address] * 25-OH vitamin D (11/27/2024 11:15 AM EDT) 25 OH VIT D (TOTAL) 34 30 - 60 ng/mL [facility] Blood 11/27/2024 11:1 5 AM EDT 11/27/2024 11:20 AM EDT us Eloy Agustin MD LAB BLOOD ORDERABLES Final Re sult Performing Organization Address [facility]/ZIP Co de Phone Number [address] [address] * (ABNORMAL) CBC and differential (11/27/2024 11:15 AM EDT) WBC 7.54 4.00 - 11.00 K/uL [facility] RBC 4.46 4.00 - 5.20 M/uL [facility] HGB 12.1 12.0 - 16.0 g/dL [facility] HCT 38.3 36.0 - 46.0 % [facility] PLT 326 150 - 450 K/uL [facility] MCV 85.9 80.0 - 100.0 fL [facility] MCH 27.1 27.0 - 31.0 pg [facility] MCHC 31.6(L) 32.0 - 36.0 g/dL [facility] RDW 13.8 11.5 - 14.5 % [facility] MPV 9.8 8.4 - 12.0 fL [facility] NRBC 0.00 0.00 /100 WBCs [facility] ABSOLUTE NRBC 0.00 0.00 K/uL [facility] DIFF METHOD Auto [facility] NEUTS 64.5 48.0 - 76.0 % [facility] LYMPHS 21.2 18.0 - 41.0 % [facility] MONOS 9.9 4.0 - 11.0 % [facility] EOS 3.2 0.0 - 5.0 % [facility] BASOS 1.1 0.0 - 1.5 % [facility] Granulocytes, immature (%) 0.1 0.0 - 0.9 % [facility] ABSOLUTE NEUTS 4.86 1.92 - 7.60 K/uL [facility] ABSOLUTE LYMPHS 1.60 0.72 - 4.10 K/uL [facility] ABSOLUTE MONOS 0.75 0.16 - 1.10 K/uL [facility] ABSOLUTE EOS 0.24 0.00 - 0.50 K/uL [facility] ABSOLUTE BASOS 0.08 0.00 - 0.15 K/uL [facility] Granulocytes, immature 0.01 0.00 - 0.09 K/uL [facility] Blood 11/27/2024 11:1 5 AM EDT 11/27/2024 11:20 AM EDT us Eloy Agustin MD LAB BLOOD ORDERABLES Final Re sult Performing Organization Address [facility]/ZIP Co de Phone Number [address] [address] * (ABNORMAL) Folate (11/27/2024 11:15 AM EDT) FOLIC ACID 3.3(L) 4.2 - 19.9 ng/mL [facility] Blood 11/27/2024 11:1 5 AM EDT 11/27/2024 11:20 AM EDT us Eloy Agustin MD LAB BLOOD ORDERABLES Final Re sult Performing Organization Address [facility] Co de Phone Number [address] [address] * Ferritin (11/27/2024 11:15 AM EDT) FERRITIN 33 13 - 150 ug/L [facility] Blood 11/27/2024 11:1 5 AM EDT 11/27/2024 11:20 AM EDT us Eloy Agustin MD LAB BLOOD ORDERABLES Final Re sult Performing Organization Address [facility] Co de Phone Number [address] [address] * Vitamin B12 (11/27/2024 11:15 AM EDT) VITAMIN B12 405 232 - 1,245 pg/mL [facility] Blood 11/27/2024 11:1 5 AM EDT 11/27/2024 11:20 AM EDT us Eloy Agustin MD LAB BLOOD ORDERABLES Final Re sult Performing Organization Address [facility]/ZIP Co de Phone Number [address] [address] * (ABNORMAL) Lipid panel (10/13/2024 11:30 AM EDT) HDL 40 mg/dL [facility] Comment: Interpretation <40 mg/dL: Low HDL cholesterol (major risk factor for CHD) Greater than or equal to 60 mg/dL: High HDL cholesterol ( negative risk factor for CHD) HDL - cholesterol is affected by a number of factors, e.g. smoking, excerise, hormones, sex and age. CHOLESTEROL 186 0 - 240 mg/dL [facility] TRIGLYCERIDES 137 30 - 160 mg/dL [facility] LDL 119 50 - 129 mg/dL [facility] Comment: LDL levels in terms of risk for coronary heart disease: <100 mg/dL: Optimal 100-129 mg/dL: Near or above optimal 130-159 mg/dL: Borderline high 160-189 mg/dL: High >190 mg/dL: Very High CARDIAC RISK RATIO 4.7(H) 3.3 - 4.4 C [facility] Blood 10/13/2024 11:3 0 AM EDT 10/13/2024 11:35 AM EDT us Eloy Agustin MD LAB BLOOD ORDERABLES Final Re sult Performing Organization Address City/[facility] Co de Phone Number [address] [address] * Hepatitis C antibody, qualitative (11/21/2019 9:11 AM EDT) HCV NON-REACTIV E NON-REACTI VE [facility] Blood 11/21/2019 9:11 AM EDT 11/21/2019 1:07 PM EDT us Eloy Agustin MD LAB BLOOD ORDERABLES Final Re sult Performing Organization Address [facility]/ZIP Co de Phone Number [address] [address] * OUTSIDE BONE DENSITY SCREENING (12/07/2011) BONE DENSITY SCREENING - EXTERNAL normal us Historical Aarti HICKS HEALTH MAINTENANCE Final Result from Last 3 Months or Most Recently Relevant to Health Maintenance Insurance MEDICARE PART A & B [employer] MEDEX SUPPLEMENT Member Subscriber Plan / Payer (Ef fective 2010-Present) Name:Mattie Turk Relation to Subscriber:Self Name:Mattie Turk Payer ID:[id number] (NAIC) Type:Indemnity Address: [facility] [id number] NET FULL MEDICARE PART A & B [employer] MEDEX SUPPLEMENT Member Subscriber Plan / Payer ( fective 2010-Present) Name:Mattie Turk Relation to Subscriber:Self Name:Mattie Turk Payer ID:[id number] (NAIC) Type:IndemniEchograph Address: [facility] [id number] FULL MEDICARE PART A & B [employer] MEDEX SUPPLEMENT HEALTH SAFETY [place]IC[place] [id number] [facility] MEDEX SUPPLEMENT HEALTH SAFETY NET FULL Member Subscriber Plan / Payer (Ef fective 2021-Present) Name:Mattie Turk Relation to Subscriber:Self Name:Mattie Turk Payer ID:Not on file Group ID:Not on file Type:Medicaid Address: [place] [id number] MEDICARE PART A & B [employer] MEDEX SUPPLEMENT [facility] NET FULL MEDICARE PART A & B [employer] MEDEX SUPPLEMENT [employer] SAFETY NET FULL MEDICARE PART A & B [employer] MEDEX SUPPLEMENT [employer] SAFETY NET FULL MEDICARE PART A & B Member Subscriber Plan / Payer (Ef fective 2010-Present) Name:Mattie Turk Member ID:[id number] Relation to Subscriber:Self Name:Mattie Turk Subscriber ID:[id number] Payer ID:[id number] Group ID:Not on file Type:Medicare Address: [facility] [employer] [facility] [address] [place] [phone] [facility] MEDEX SUPPLEMENT Member Subscriber Plan / Payer (Ef fective 2010-Present) Name:Mattie Turk Relation to Subscriber:Self Name:Mattie Turk Payer ID:[id number] (NAIC) Type:Indemnity Address: [facility] [id number] NET FULL MEDICARE PART A & B [employer] MEDEX SUPPLEMENT [facility] NET FULL Advance Directives For more information, please contact: [phone] (9AM - 5PM [facility], Sunday-Sunday) Documents on File Type Date Recorded 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 06/14/2021 4:13 PM * Full Code (Latest Code Status on File) Date Activated Date Inactivated Comments 05/16/2022 6:35 PM Question Answer Comments Code Status Confirmed With: Patient * Full Code Date Activated Date Inactivated Comments 05/16/2022 11:45 AM 05/16/2022 6:35 PM Question Answer Comments Code Status Confirmed With: Patient * Full Code Date Activated Date Inactivated Comments 10/24/2021 4:16 PM 05/16/2022 11:45 AM Question Answer Comments Code Status Confirmed With: Patient * Full Code Date Activated Date Inactivated Comments 10/24/2021 8:31 AM 10/24/2021 4:16 PM Question Answer Comments Code Status Confirmed With: Patient * Full Code Date Activated Date Inactivated Comments 06/12/2021 3:32 PM 10/24/2021 8:31 AM Question Answer Comments Code Status Confirmed With: Patient Healthcare Agents on File Name Relationship Healthcare Agent Johnathan chris Communication Ruperto Dickinson .Primary Health Care Agent (Proxy form on file) Care Teams Figure Skater Relationship Specialty Start Date End Date Eloy Agustin MD [address] [place] [address] PCP - General Internal Medicine 08/22/17 Eloy Agustin MD [address] [place] [address] Insurance Assigned Provider 10/06/23 Instrum, Tommy Donald MD [address] [place] [address] Orthopedic Surgery 11/20/19 Art Parra MD [address] [place] [id number] Gastroenterology 11/25/19 María Day, PT [address] [place] [address] Physical Therapist Physical Therapy 10/24/21 Additional Source Comments The information contained in this document represents components of the legal health record. It is not the complete legal health record.[facility]
--- OUTSIDE RECORDS SUMMARY | 2025-02-26 06:47 | XMS_ITS ---
Author Organization [facility] Care Team Providers Care Trial Paralegal Name Role Phone Ruperto Dawn Unavailable Unavailable Allergies and adverse reactions Code CodeSystem Substance Reaction Severity StartDate Concern Status 71269 RXNORM Tetracycline Unknown 10/31/2018 active 7646 RXNORM Omeprazole Unknown 10/31/2018 active 2670 RXNORM Codeine Unknown 10/31/2018 active 894388 RXNORM Celecoxib Unknown 10/31/2018 active 57924 RXNORM Azithromycin Unknown 10/31/2018 active Care Team Name Role Address Phone Organization Dates Ruperto Dawn PCP [address] [facility] [address], [place], [address], [place] (Office): : [facility] 10/31/2018 - 11/06/2018 Immunizations Immunization Status Vaccine Details Vaccine Code CodeSystem Date Notes Influenza completed Influenza, split virus, trivalent, injectable, contains preservative Given intramuscularly 141 CVX created date: 10/31/2018 administer ed date: 08/30/2018 TB 2 Step Mantoux Skin Test completed tuberculin skin test; unspecified formulation lotNumber: [id number] expiry: 03/31/2020 Mfg: [employer] Given 0.1 ml Right Forearm intradermally Step 1 of Multi-step with next step required 98 CVX created date: 10/31/2018 consent date: 11/01/2018 administer ed date: 11/01/2018 Educated by gaetano choudhary on 11/01/2018 PPSV23 (Previous Pneumococcal Polysaccharide) Vaccine completed pneumococcal polysaccharide vaccine, 23 valent 33 CVX created date: 10/31/2018 administer ed date: 08/30/2016 Mental Status Section Date Assessment Total Score Description 11/06/2018 BIMS 13 cognitively int act CAM 0 No delirium ind icated PHQ-9 00 Problems Problem # Description Date of onset Resolved Date Code CodeSystem Concern Status 1 ANEMIA, UNSPECIFIED 10/31/[address] active 2 ANXIETY DISORDER, UNSPECIFIED 10/31/[address] active 3 CARDIAC MURMUR, UNSPECIFIED 10/31/[address] active 4 CHRONIC OBSTRUCTIVE PULMONARY DISEASE, UNSPECIFIED 10/31/[address] active 5 DIAPHRAGMATIC HERNIA WITHOUT OBSTRUCTION OR GANGRENE 10/31/[address] active 6 GASTRO-ESOPHAGEAL REFLUX DISEASE WITHOUT ESOPHAGITIS 10/31/[address] active 7 HYPOTHYROIDISM, UNSPECIFIED 10/31/[address] active 8 OTHER ABNORMALITIES OF GAIT AND MOBILITY 10/31/[address] active 9 OTHER LACK OF COORDINATION 10/31/[address] active 10 PRESENCE OF LEFT ARTIFICIAL HIP JOINT 10/31/[address] active 11 UNILATERAL PRIMARY OSTEOARTHRITIS, LEFT HIP 10/31/[address] active 12 WEAKNESS 10/31/[address] active Reason for Referral No Reasons for Referral Entered Social History Social History Observation Description Start Date End Date Code Code System Current Smoking Status Tobacco smoking consumption unknown 002594587 SNOMED CT Sex Assigned At Female 1945 46743-1 [facility] Gender Identity Vital Signs Code Code System Vitals Name Values and Units Timing Information 9279-1 [facility] Respiratory Rate Value=18.0 Units=/m in 11/06/2018 8462-4 LOINC Blood Pressure-Diastolic Value=87 Un its=mmHg 11/06/2018 8480-6 LOINC Blood Pressure-Systolic Zjycx=712 Un its=mmHg 11/06/2018 8310-5 [facility] Body Temperature Value=97.1 Units= F 11/06/2018 8867-4 LOINC Heart rate Value=68.0 Units=/min 01/2019 14176-1 INC O2 % BldC Oximetry Value=97.0 Units= % 11/06/2018 67671-9 LOINC Pain Level Value=1.0 11/06/2018 8302-2 LOINC Height Value=63.0 Units=Inches 10/31/2018 25329-7 LOINC Weight Borgn=177.5 Units=Lbs 08/2018
[2025-02-26 10:25] LABS: MANUAL DIFF FLAG NO
[2025-02-26 10:32] LABS: Hematocrit 37.1 % (37.0-47.0); Hemoglobin 11.7 g/dl (12.0-16.0); Imm Gran Abs Auto 0.03 X10*3/uL (0.00-0.03); Imm Gran Pct Auto 0.4 % (0.0-0.4); Lymphocytes Absolute Auto 1.4 X10*3/uL (1.2-4.9); Mean Corpuscular HGB Conc 31.5 g/dl (31.0-35.0); Mean Corpuscular Hemoglobin 27.6 pg (27.0-33.0); Mean Corpuscular Volume 87.5 fL (80.0-98.0); NRBC Abs Auto 0.000 X10*3/uL (0.0-0.012); NRBC Pct Auto 0.0 /100WBC (0.0-0.2); Platelet Count 303 X10*3/uL (160-400); Red Blood Count 4.24 X10*6/uL (4.20-5.50); White Blood Count 6.7 X10*3/uL (4.8-10.8)
[2025-02-26 11:13] LABS: Ferritin 33 ng/mL (10-250)
[2025-02-26 11:16] LABS: Folate 13.5 ng/mL (> or = 4.0)
== END 2025-02-26 06:42 | disposition home or self-care (01) ==
LOC: HO.HMGCLDS 06:41
PROVIDERS: PCP Internal Medicine; Visit Provider Internal Medicine
DX: E53.8 Deficiency of other specified B group vitamins (principal); R79.0 Abnormal level of blood mineral; E03.9 Hypothyroidism, unspecified
CPT/HCPCS: 36415; 82728; 82746; 84443; 85025

== ENCOUNTER 2025-04-15 06:42 | Outpatient (REF) | payer MEDICARE, SELFPAY ==
--- OUTSIDE RECORDS SUMMARY | 2025-04-15 06:44 | XMS_ITS | Encounter Summary ---
Author Organization [facility] Address [address] [place] [address] Phone Care Team Providers Care Cyber Engineer Name Role Phone Eloy Agustin MD Unavailable Eloy Agustin MD Primary Care Provider [phone] InstrumTommy MD Unavailable Art Parra MD Unavailable [phone] 1 María Day PT Unavailable [phone] Lyly Saavedra OT Unavailable [phone] Encounter Details Date Type Department Care Team (Late st Contact Info) Description 02/08/2022 Procedure Pass [facility], Ct Scan - [address] [address] Social History Tobacco Use Types Packs/Day Years 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, 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 on file Not on file Not on file documented as of this encounter Plan of Treatment Upcoming Encounters Date Type Department Care Team (Late st Contact Info) Description 04/20/2025 9:30 AM EDT Office Visit [facility] Internal Medicine [address] [place] [address] Eloy Agustin MD [address] [place] [address] [email or web address] documented as of this encounter Visit Diagnoses Not on filedocumented in this encounter Additional Health Concerns Assessment Noted Time PHQ-2 Depression Total Score: 1 08/09/19 22 10:09 AM EST documented as of this encounter Care Teams Cyber Engineer Relationship Specialty Start Date End Date Eloy Agustin MD [address] [place] [address] PCP - General Internal Medicine 08/22/17 Eloy Agustin MD [address] [place], [place] Insurance Assigned Provider 10/06/23 InstrumTommy MD [address] [place] [address] Orthopedic Surgery 11/20/19 Art Parra MD [address] [place] [address] Gastroenterology 11/25/19 María Day, PT [address] [place] [address] [email or web address] Physical Therapist Physical Therapy 10/24/21 Lyly Saavedra, OT [address] [place] [address] [email or web address] Transitions Game Bird Farmer 05/17/22 2 documented as of this encounter Additional Source Comments The information contained in this document represents components of the legal health record. It is not the complete legal health record.[facility]
--- OUTSIDE RECORDS SUMMARY | 2025-04-15 06:45 | XMS_ITS | Clinical Summary ---
Author Organization [address] 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 10/23 Hand arthritis 10/23/2022 Gait instability 10/23/2022 Anxiety 10/20/2022 Elevated bilirubin 10/20/2022 Scoliosis of thoracolumbar spine 10/20/2022 GIB (gastrointestinal bleeding) 10/20/2022 GERD (gastroesophageal reflux disease) S/P total left hip arthroplasty 10/20/2022 S/P hysterectomy 10/20/2022 History of total knee replacement 10/20/2022 Encounters Date Type Department Care Team Description 01/23/2025 7:00 AM EDT Ancillary Procedure [facility] - [facility] [address] [facility] [address] [place] [address] Cardiac murmur from Last 3 Months Immunizations Immunization Administration Dates Next Due Moderna SARS-CoV-2 COVID-19, mRNA, LNP-S, preservative free 10/14/2020,09/16/2020 Surgical History Surgery Date Site/Laterality Comments TOTAL KNEE ARTHROPLASTY 05/16/2022 Left PROCEDURE: HISTORICAL TOTAL KNEE REPLACE; COMMENT: @ [facility] TOTAL KNEE ARTHROPLASTY 10/24/2021 Right PROCEDURE: HISTORICAL TOTAL KNEE REPLACE; COMMENT: @ [facility] HYSTERECTOMY PROCEDURE: HISTORICAL HYSTERECTOMY HIP ARTHROPLASTY Left PROCEDURE: HISTORICAL HIP REPLACEMENT; COMMENT: @ [facility] Social History Tobacco Use Types Packs/Day Years [...] PM EST Office Visit Gastroenterology - [address] [place] [phone] Lisandra Case MD [address] [facility] [address] [place] [address] Health Maintenance Due Date Last Done Comments Falls Risk Assessment 06/03/2022 Lung Cancer Screening (Low Dose CT) 06/03/2022 Medicare Annual Wellness Visit 06/03/2022 Osteoporosis Screening (Bone Density Screening) 06/03/2022 Social Influencers of Health Screening 06/03/2022 Depression Screening 07/02/2024 COVID-19 Vaccine ( season) 2025 05/12/2024, 03/17/2023, 03/24/2022, Additional history exists Influenza Vaccine (#1) 2025 , 02/24/2023, 02/23/2022, Additional history exists DTaP,Tdap,and Td Vaccines (4 - Td or Tdap) 04/09/2028 04/09/2018, 10/07/2015, 04/01/2006 Cholesterol Screening (Lipid Panel) 10/13/2029 10/13/2024, 03/09/2022 Zoster Vaccines Completed 08/23/2019, 11 10/2018, 04/14/2014 Hepatitis C Screening Completed 11/21/2019 [...] (01/23/2025 7:44 AM EDT) Left [facility] [place] 6.5 cm CV PACS Left [facility] [place] 5.9 cm CV PACS [place] Area Sys [...] Recently Relevant to Health Maintenance Insurance MEDICARE [facility] Care Teams Supervisor Water Treatment Plant Relationship Specialty Start Date End Date Eloy Agustin MD [address] [place] [address] PCP - General 10/23/22
--- OUTSIDE RECORDS SUMMARY | 2025-04-15 06:45 | XMS_ITS | Encounter Summary ---
Author Organization [facility] Address [address] [place] [address] Phone Care Team Providers Care Vice Chancellor Name Role Phone Eloy Agustin MD Unavailable [phone] Eloy Agustin MD Primary Care Provider InstrumTommy MD Unavailable Art Parra MD Unavailable [phone] 1 María Day PT Unavailable Kevin Thomason OT Unavailable [phone] Lyly Saavedra OT Unavailable Encounter Details Date Type Department Care Team (Late st Contact Info) Description 10/24/2021 Procedure Pass [place] Admitting Dept - Virtual Department [address] [place] [address] Social History Tobacco Use Types Packs/Day Years 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, 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 on file Not on file Not on file documented as of this encounter Functional Status * Calculated C-SSRS Risk Score (Lifetime/Recent) Answer Date of Assessment Author No Risk Indicated 10/24/2021 4:00 PM EDT Arielle Kennedy RN * [place] Suicide Severity Rating Scale (Screener/Recent Self-Report) Question [...] Description 04/20/2025 9:30 AM EDT Office Visit [facility] Internal Medicine [address] [place] [address] Eloy Agustin MD [address] [place], [place] [email or web address] documented as of this encounter Visit Diagnoses Not on filedocumented in this encounter Additional Health Concerns Assessment Noted Time PHQ-2 Depression Total Score: 1 08/09/19 22 10:09 AM EST documented as of this encounter Care Teams Vice Chancellor Relationship Specialty Start Date End Date Eloy Agustin MD [address] [place], [place] [email or web address] PCP - General Internal Medicine 08/22/17 Eloy Agustin MD [address] [place] [address] Insurance Assigned Provider 10/06/23 Tommy Carrion MD [address] [place] [address] [address] [place] [address] Orthopedic Surgery 11/20/19 Art Parra MD [address] [place] [address] Gastroenterology 11/25/19 María Day, PT [address] [place] [address] [email or web address] Physical Therapist Physical Therapy 10/24/21 Kevin Thomason, OT [address] [place] [address] [email or web address] Transitions Beef TrimmerPerioperative Assistant Therapy 10/25/21 Lyly Saavedra, OT [address] [place] [address] [email or web address] Transitions Beef Trimmer 05/17/22 2 documented as of this encounter Additional Source Comments The information contained in this document represents components of the legal health record. It is not the complete legal health record.[facility]
--- OUTSIDE RECORDS SUMMARY | 2025-04-15 06:45 | XMS_ITS | Encounter Summary ---
Author Organization [facility] Address [address] [place] [address] Phone Care Team Providers Care Speech And Hearing Clinic Director Name Role Phone Eloy Agustin MD Unavailable [phone] Eloy Agustin MD Primary Care Provider [phone] InstrumTommy MD Unavailable Art Parra MD Unavailable [phone] 1 María Day PT Unavailable [phone] yLly Saavedra OT Unavailable [phone] Encounter Details Date Type Department Care Team (Late st Contact Info) Description 05/16/2022 Procedure Pass [place] Admitting Dept - Virtual Department [address] [place] [address] Social History Tobacco Use Types Packs/Day Years 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, 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 Not on file Not on file documented as of this encounter Functional Status * Calculated C-SSRS Risk Score (Lifetime/Recent) Answer Date of Assessment Author No Risk Indicated 05/16/2022 6:00 PM Daily Ghosh RN * [place] Suicide Severity Rating Scale (Screener/Recent Self-Report) Question [...] Description 04/20/2025 9:30 AM EDT Office Visit [facility] Internal Medicine [address] [place] [address] Eloy Agustin MD [address] [place] [address] [email or web address] documented as of this encounter Visit Diagnoses Not on filedocumented in this encounter Additional Health Concerns Assessment Noted Time PHQ-2 Depression Total Score: 0 03/09/20 22 10:02 AM EDT documented as of this encounter Care Teams Speech And Hearing Clinic Director Relationship Specialty Start Date End Date Eloy Agustin MD [address] [place] [address] PCP - General Internal Medicine 08/22/17 Eloy Agustin MD [address] [place] [address] Insurance Assigned Provider 10/06/23 InstrTommy [email or web address] MD [address] [place] [address] Orthopedic Surgery 11/20/19 Art Parra MD [address] [place] [address] Gastroenterology 11/25/19 María Day, PT [address] [place] [address] Physical Therapist Physical Therapy 10/24/21 Lyly Saavedra, OT [address] [place] [address] [email or web address] Transitions Churn Operator 05/17/22 2 documented as of this encounter Additional Source Comments The information contained in this document represents components of the legal health record. It is not the complete legal health record.[facility]
--- OUTSIDE RECORDS SUMMARY | 2025-04-15 06:45 | XMS_ITS | Clinical Summary ---
Author Organization [facility] Address [address] [place] [id number] Phone Care Team Providers Care Soda Worker Name Role Phone Eloy Agustin MD Unavailable [phone] Eloy Agustin MD Primary Care Provider [phone] Instrum, Tommy Donald MD Unavailable [phone] Art Parra MD Unavailable [phone] 1 María Day PT Unavailable [phone] Allergies Active Allergy Reactions Criticality Noted Date [...] by mouth 2 (two) times a day. 022 Active Additional Information Patient taking differently:500 mg Oral2 times weekly, Reported on 11/27/2024 cyanocobalamin, vitamin B-12, 100 MCG tabletIndications :B12 deficiency Take 1 tablet (100 mcg total) by mouth daily. 100 tablet 1 022 Active Additional Information Patient taking differently:100 mcg OralEvery 30 days, Reported on 11/27/2024 lidocaine HCL 4 % PtMd Apply 1 patch topically daily as needed. Active gabapentin (NEURONTIN) 300 MG capsuleIndication s:S/P total knee replacement using cement, right TAKE 1 CAPSULE BY MOUTH THREE TIMES A DAY 90 capsule 11 024 Active albuterol 90 mcg/actuation inhalerIndication s:Bronchospasm INHALE 2 PUFFS BY MOUTH EVERY 6 HOURS NEEDED FOR WHEEZING 8 g 5 024 Active sertraline (ZOLOFT) 50 MG tabletIndications :Anxiety disorder TAKE 1 TABLET BY MOUTH NIGHTLY AT BEDTIME 90 tablet 3 025 Active acetaminophen (TYLENOL) 650 MG CR tablet Take 1,300 mg by mouth 2 (two) times a day. And 1 tablet in the afternoon Active LORazepam (ATIVAN) 1 MG tabletIndications :Anxiety Take 1 tablet (1 mg total) by mouth every 8 (eight) hours as needed for anxiety. 90 tablet 4 025 Active folic acid (FOLVITE) 1 MG tabletIndications :Folic acid deficiency Take 1 tablet (1 mg total) by mouth daily. 100 tablet 1 025 Active SYNTHROID 125 mcg tabletIndications :Acquired hypothyroidism TAKE 1 TABLET (125 MCG TOTAL) BY MOUTH DIRECTED. 6 DAYS/WEEK 78 tablet 5 025 Active pantoprazole (PROTONIX) 20 MG tabletIndications :Gastroesophageal reflux disease, unspecified whether esophagitis present Take 1 tablet (20 mg total) by mouth daily as needed (K21.9). 90 tablet 3 025 Active pantoprazole (PROTONIX) 20 MG tabletIndications :Gastroesophageal reflux disease, unspecified whether esophagitis present Take 1 tablet (20 mg total) by mouth daily. 90 tablet 1 025 2024 Discontinued Active Problems Problem Noted Date Diagnosed Date [...] Encounters Date Type Department Care Team Description 04/08/2025 Refill [facility] Internal Medicine [address] [facility] [place] [address] Eloy Agustin MD Medication Refill 03/06/2025 Telephone [facility] Internal [facility] [address] [facility] [place] [address] Eloy Agustin MD lab results 03/04/2025 Refill [facility] Internal [facility] [address] [facility] [place] [address] Eloy Agustin MD Medication Refill 03/03/2025 Orders Only [facility] Internal [facility] [address] [facility] [place] [address] Adelaida Broussard MD 02/24/2025 Telephone [facility] Internal [facility] [address] [facility] [place], [place] [address] Eloy Agustin MD Test Results 01/26/2025 Orders Only [facility] Internal [facility] [address] [facility] [place] [address] Provider, MD Adelaida from Last 3 Months Immunizations Immunization Administration Dates Next Due COVID-19 (Pre-04/23) Moderna Vaccine, mRNA, PF 10/14/2020,09/16/2020 INFLUENZA, SPLIT VIRUS, TRIV ALENT W/ PRESERVATIVE IM 08/30/2018 Influenza High-Dose Quadriva lent Preservative Free IM 02/23/2022,03/14/2021,02/19/2020 Influenza High-Dose Trivalen t Preservative Free IM 02/18/2025,02/13/2024,02/19/2020,04/03,03/10/2017,02/18/2016,03/28/2015 ,04/24/2013 Influenza Quadrivalent Adjuv anted Preservative Free IM 02/24/2023 Influenza, Unspecified Formulation 02/19/2019 PPD Test 11/01/2018 Pneumococcal conjugate PCV13 02/05/2020,12/23/19 15 Pneumococcal polysaccharide PPSV23 08/30/2016, RSV Vaccine (bivalent) 01/17/2024 Td (adult) 5 Lf Tetanus Toxo id, PF, Adsorbed 04/09/2018,04/01/2006 Tdap 02/26/2025,10/07/2015 Zoster live 04/14/2014 Zoster recombinant 08/23/2019,05/06/2019 Family 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, 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 Not on file Not on file Not [...] Description 04/20/2025 9:30 AM EDT Office Visit [facility] Internal Medicine [address] [place] [address] Eloy Agustin MD [address] [place] [address] [email or web address] Maintenance Due Date Last Done Comments HEPATITIS A VACCINES (1 of 2 - Risk 2-dose series) 12/17/1966 LUNG CANCER SCREENING (LDCT Only) 12/17/1997 COVID-19 VACCINE ( season) 2025 04/04/2025, 05/12/2024, 03/17/2023, Additional history exists DEPRESSION SCREENING 11/27/2025 11/27/2024 TSH LEVEL 11/27/2025 11/27/2024, 09/30, 06/01/2023, Additional history exists LIPID PANEL 10/13/2029 10/13/2024, 04/01, 04/10/2023, Additional history exists Adult Td,Tdap Booster 02/26/2035 02/26/2025 , 04/09/2018, 10/07/2015, Additional history exists OSTEOPOROSIS SCREENING INITIAL (ONE-TIME) Completed 12/07/2011 ZOSTER VACCINES Completed 08/23/2019, 10/2018, 04/14/2014 HEPATITIS C SCREENING Completed 11/21/2019, 020 PNEUMOCOCCAL VACCINES (50+ years) Completed 02/05/2020, 08/30/2016, 12/22/2014, Additional history exists RSV VACCINE Completed 01/17/2024 INFLUENZA VACCINE Completed 02/18/2025, , 02/24/2023, Additional history exists HIB VACCINES Aged Out No longer eligi ble based on patient's age to complete this topic MENINGOCOCCAL VACCINES (ACWY) Aged Out No longer eligible based on patient's age to complete this topic MENINGOCOCCAL VACCINES (B) Aged Out N o longer eligible based on patient's age to complete this topic Medical Devices Implanted Type Area Assembler For Puller Over Machine Device Identifier Shelf Expiration Date Model / Serial / Lot Prosthetic Joint Prosthetic Joint Left: Hip Knee Implant Sz 7 Component Femoral Persona Ps [place] Cemented Std Rt - [id number] Implanted:Qty: 1 on 10/24/2021 by Chito Rooney MD at [facility] Right: Knee [facility] [facility] 10/24/2030 [id number] / / [id number] Knee Implant 5deg Component Tibial Persona Titanium Stemmed Cemented Rt Size E - [id number] Implanted:Qty: 1 on 10/24/2021 by Chito Rooney MD at [facility] Right: Knee [facility] [facility] 05/23/2031 [id number] / / [id number] Knee Cemented 35x9.0mm Patella All Poly Persona Vivacit E Highly Crossed Linked 06 Nc - [id number] Implanted:Qty: 1 on 10/24/2021 by Chito Rooney MD at [facility] Right: Knee [employer]AN / [employer] 07/10/2026 [id number] / / [id number] Bone Cement Antibiotic Refobacin - [id number] Implanted:Qty: 2 on 10/24/2021 by Chito Rooney MD at [facility] Right: Knee [employer] / [employer] 11/30/2023 [id number] / / [id number] Persona Vivacit-E Highly Crosslinked Polyethylene Articular Surface Fixed Bearing Ps Right 11mm Implanted:Qty: 1 on 10/24/2021 by Chito Rooney MD at [facility] Right: Knee SUSAN 09/17/2025 [id number] / / [id number] Description:Persona vivacit- e highly crosslinked polyethylene articular surface fixed bearing PS right 11mm Knee Implant 5deg Component Tibial Persona Titanium Stemmed Cemented Lt Size D - [id number] Implanted:Qty: 1 on 05/16/2022 by Chito Rooney MD at [facility] Left: Knee [employer] / [facility] 01/03/2032 [id number] / / [id number] Knee Cemented 35x9.0mm Patella All Poly Persona Vivacit E Highly Crossed Linked 06 Nc - [id number] Implanted:Qty: 1 on 05/16/2022 by Chito Rooney MD at [facility] Left: Knee [employer] / [facility] 04/03/2027 [id number] / / [id number] Knee Implant 12mm Component Articular Surface Persona Vivacite E Contrained Posterior Stabilized Lt Fem 6 9 Tib Cd - [id number] Implanted:Qty: 1 on 05/16/2022 by Chito Rooney MD at [facility] Left: Knee [employer] / [facility] 07/14/2025 [id number] / / [id number] Description:Persona vivacit- e highly crosslinked polyethylene articular surface fixed bearing CPS left 12mm height Bone Cement Antibiotic Refobacin - [id number] Implanted:Qty: 1 on 05/16/2022 by Chito Rooney MD at [facility] Left: Knee [employer]USAN / [facility] 05/31/2024 [id number] / / [id number] Bone Cement Antibiotic Refobacin - [id number] Implanted:Qty: 1 on 05/16/2022 by Chito Rooney MD at [facility] Left: Knee SUSAN / [facility] 05/01/2024 [id number] / / [id number] Knee Implant Sz 6 Component Femoral Persona Ps [place] Cemented Std Lt - [id number] Implanted:Qty: 1 on 05/16/2022 by Chito Rooney MD at [facility] Left: Knee SUSAN / DIV [employer] 09/27/2030 [id number] / / [id number] Procedures Procedure Name Priority Date/Time Associated Diagnosis Comments OUTSIDE LAB Routine 02/26/2025 10:24 AM EDT OUTSIDE ECHO Routine 01/23/2025 2:09 PM EDT TSH WITH REFLEX Routine 11/27/2024 11:15 AM EDT Acquired hypothyroidism LIPID PANEL Routine 10/13/2024 11:30 AM EDT Impaired fasting glucose Pure hypercholesterolemia HEPATITIS C ANTIBODY, QUALITATIVE Routine 11/21/2019 9:11 AM EDT Need for hepatitis C screening test OUTSIDE BONE DENSITY SCREENING Routine 12/07/2011 from Last 3 Months or Most Recently Relevant to Health Maintenance Results * Outside Lab (02/26/2025 10:24 AM EDT) Historical Provider LAB BLOOD ORDERABLES Emely l Result * Outside Echo Report Only (01/23/2025 2:09 PM EDT) Historical Provider CV ECHO ORDERABLES Final Result * TSH with reflex (11/27/2024 11:15 AM EDT) TSH 1.35 0.27 - 4.20 uIU/mL [facility] Blood 11/27/2024 11:1 5 AM EDT 11/27/2024 11:20 AM EDT us Eloy Agustin MD LAB BLOOD ORDERABLES Final Re sult [address] [id number] * (ABNORMAL) Lipid panel (10/13/2024 11:30 AM EDT) HDL 40 mg/dL [facility] Comment: Interpretation <40 mg/dL: Low HDL cholesterol (major risk factor for CHD) Greater than or equal to 60 mg/dL: High HDL cholesterol ( negative risk factor for CHD) HDL - cholesterol is affected by a number of factors, e.g. smoking, excerise, hormones, sex and age. CHOLESTEROL 186 0 - 240 mg/dL [facility] TRIGLYCERIDES 137 30 - 160 mg/dL [facility] LDL 119 50 - 129 mg/dL [facility] Comment: LDL levels in terms of risk for coronary heart disease: <100 mg/dL: Optimal 100-129 mg/dL: Near or above optimal 130-159 mg/dL: Borderline high 160-189 mg/dL: High >190 mg/dL: Very High CARDIAC RISK RATIO 4.7(H) 3.3 - 4.4 C [facility] Blood 10/13/2024 11:3 0 AM EDT 10/13/2024 11:35 AM EDT Eloy Agustin MD LAB BLOOD ORDERABLES Final Re sult Performing Organization Address [facility] Co de Phone Number [address] [phone] * Hepatitis C antibody, qualitative (11/21/2019 9:11 AM EDT) Pathologist [facility] HCV NON-REACTIV E NON-REACTI VE [facility] Blood 11/21/2019 9:11 AM EDT 11/21/2019 1:07 PM EDT Eloy Agustin MD LAB BLOOD ORDERABLES Final Re sult Performing Organization Address [facility] Co de Phone Number [address] [address] * OUTSIDE BONE DENSITY SCREENING (12/07/2011) Pathologist [facility] BONE DENSITY SCREENING - EXTERNAL normal Adelaida Broussard MD HEALTH MAINTENANCE Final Result from Last 3 Months or Most Recently Relevant to Health Maintenance Insurance MEDICARE PART A & B AA Party MEDEX SUPPLEMENT Member Subscriber Plan / Payer (Ef fective 2010-Present) Name:Mattie Turk Relation to Subscriber:Self Name:Mattie Turk Payer ID:[id number] (NAIC) Type:IndemniYangaroo Address: [facility] [id number] [address] FULL MEDICARE PART A & B [employer] CROSS MEDEX SUPPLEMENT [employer] SAFETY NET FULL MEDICARE PART A & B Member Subscriber Plan / Payer (Ef fective 2010-Present) Name:Mattie Turk Member ID:[id number] Relation to Subscriber:Self Name:Mattie Turk Subscriber ID:[id number] Payer ID:[id number] Group ID:Not on file Type:Medicare Address: [facility] [employer] [facility] [address] [place] [address] [employer] CROSS MEDEX SUPPLEMENT [employer] SAFET[employer] NET FULL MEDICARE PART A & B [facility] MEDEX SUPPLEMENT Member Subscriber Plan / Payer (Ef fective 2010-Present) Name:Mattie Turk Relation to Subscriber:Self Name:Mattie Turk Payer ID:[id number] (NAIC) Type:Indemnity Address: [facility] [id number] [address] NET FULL MEDICARE PART A & B AA Party MEDEX SUPPLEMENT Member Subscriber Plan / Payer (Ef fective 2010-) Name:Mattie Turk Relation to Subscriber:Self Name:Mattie Turk Payer ID:[id number] (NAIC) Type:Indemnity Address: [facility] [id number] [address] NET FULL MEDICARE PART A & B AA Party MEDEX SUPPLEMENT HEALTH SAFETY NET FULL MEDICARE PART A & B [employer] MEDEX SUPPLEMENT HEALTH SAFETY NET FULL MEDICARE PART A & B Member Subscriber Plan / Payer (Ef fective 2010-Present) Name:Mattie Turk Member ID:[id number] Relation to Subscriber:Self Name:Mattie Turk Subscriber ID:[id number] Payer ID:[id number] Group ID:Not on file Type:Medicare Address: [facility] [employer] [facility] [address] [facility] MEDEX SUPPLEMENT [facility] NET FULL MEDICARE PART A & B Member Subscriber Plan / Payer (Ef fective 2010-Present) Name:Mattie Turk Member ID:[id number] Relation to Subscriber:Self Name:Mattie Turk Subscriber ID:[id number] Payer ID:[id number] Group ID:Not on file Type:Medicare Address: [facility] [employer] [facility] [address] [place] [address] BLUE CROSS MEDEX SUPPLEMENT [facility] NET FULL Advance Directives For more information, please contact: [phone] (9AM - 5PM [facility], Sunday-Sunday) Documents on File Type Date Recorded Patient Economics Professor Expl anation Healthcare Proxy 06/14/2021 4:13 PM [...] Agent (Proxy form on file) Care Teams Soda Worker Relationship Specialty Start Date End Date Eloy Agustin MD [address] [place] [address] PCP - General Internal Medicine 08/22/17 Eloy Agustin MD [address] [place] [address] Insurance Assigned Provider 10/06/23 Instrum, Tommy Donald MD [address] [place] [phone] Orthopedic Surgery 11/20/19 Art Parra MD [address] [place] [address] Gastroenterology 11/25/19 María Day, PT [address] [place] [address] [email or web address] Physical Therapist Physical Therapy 10/24/21 Additional Source Comments The information contained in this document represents components of the legal health record. It is not the complete legal health record.[facility]
[2025-04-15 09:59] LABS: MANUAL DIFF FLAG NO
[2025-04-15 10:19] LABS: Hematocrit 37.5 % (37.0-47.0); Hemoglobin 11.4 g/dl (12.0-16.0); Imm Gran Abs Auto 0.02 X10*3/uL (0.00-0.03); Imm Gran Pct Auto 0.3 % (0.0-0.4); Lymphocytes Absolute Auto 1.4 X10*3/uL (1.2-4.9); Mean Corpuscular HGB Conc 30.4 g/dl (31.0-35.0); Mean Corpuscular Hemoglobin 27.3 pg (27.0-33.0); Mean Corpuscular Volume 89.9 fL (80.0-98.0); NRBC Abs Auto 0.000 X10*3/uL (0.0-0.012); NRBC Pct Auto 0.0 /100WBC (0.0-0.2); Platelet Count 347 X10*3/uL (160-400); Red Blood Count 4.17 X10*6/uL (4.20-5.50); White Blood Count 6.8 X10*3/uL (4.8-10.8)
[2025-04-15 10:59] LABS: Ferritin 40 ng/mL (10-250)
[2025-04-15 11:06] LABS: Folate 9.6 ng/mL (> or = 4.0)
[2025-04-15 11:45] LABS: Free T4 (Free Thyroxine) 0.94 ng/dL (0.71-1.85)
== END 2025-04-15 06:43 | disposition home or self-care (01) ==
LOC: HO.HMGCLDS 06:42
PROVIDERS: PCP Internal Medicine; Visit Provider Internal Medicine
DX: D64.9 Anemia, unspecified (principal); E03.9 Hypothyroidism, unspecified
CPT/HCPCS: 36415; 82728; 82746; 84439; 84443; 85025